=== PATIENT | female | born 1935 | race Caucasian/White ===

== ENCOUNTER 2020-05-29 09:42 | Day surgery (SDC) | payer MEDICARE, MEDICAID ==
[~2020-05-29 09:42] MED LIST: Sodium Chloride 0.9% 10 ML Syringe FLUSH PRN
[2020-05-29] MEDS ORDERED: Midazolam 1 MG/ML 2 ML SDV IV ONE (09:43)
[2020-05-29] MEDS ORDERED: Dexamethasone 4 MG/ML SDV IV ONE (09:43)
[2020-05-29] MEDS ORDERED: Sodium Chloride 0.9% 10 ML Syringe IV ONE (09:43)
[2020-05-29] MEDS ORDERED: Timolol Maleate 0.5% Ophth Soln 5 ML Bottle EYERT ONE (10:15)
[2020-05-29] MEDS ORDERED: Cataract Ophth Solution EYERT ONE (10:15)
[2020-05-29] MEDS ORDERED: Povidone-Iodine 5% Sterile Ophth Soln 30 ML Bottle EYERT ONE ×2 (10:15→11:35)
[2020-05-29] MEDS ORDERED: Tropicamide 1% Ophth Soln 15 ML Bottle EYERT ONE (10:15)
[2020-05-29] MEDS ORDERED: Moxifloxacin 0.5% Ophth Soln 3 ML Bottle EYERT ONE (10:15)
[2020-05-29] MEDS ORDERED: Acetaminophen 325 MG Tab PO PRN (10:15)
[2020-05-29] MEDS ORDERED: Ondansetron 4 MG/2 ML SDV IVPUSH PRN (10:15)
[2020-05-29] MEDS ORDERED: Proparacaine 0.5% Ophth Soln 15 ML Bottle EYERT ONE (10:15)
[2020-05-29] MEDS: Phenylephrine 10% Ophth Soln 5 ML Bot EYERT PRN ×2 (10:44→11:15)
[2020-05-29] MEDS ORDERED: Lidocaine 1% 30 ML SDV ONE (11:35)
[2020-05-29] MEDS ORDERED: Apraclonidine 0.5% Ophth Soln 5 ML Bot EYERT ONE (11:35)
[2020-05-29] MEDS ORDERED: Tetracaine HCl/PF 0.5% 4 ML Bottle EYERT ONE (11:35)
[2020-05-29] MEDS ORDERED: Vancomycin 500 MG SDV EYERT ONE (11:36)
[2020-05-29] MEDS ORDERED: Balanced Salt Solution Ophth Irrig 500 ML Bottle IOCULAR ONE (11:36)
[2020-05-29] MEDS ORDERED: Dexamethasone/Neomycin/Polymyxin B Ophth Oint 3.5 GM Tube EYERT ONE (11:36)
[2020-05-29] MEDS ORDERED: Chondroitin Sulfate/Hyaluronate Sodium Ophth Inj 0.75 ML Syringe EYERT ONE ×3 (11:36→11:58)
[2020-05-29] MEDS ORDERED: Diclofenac Sodium 0.1% Ophth Soln 5 ML Bottle EYERT ONE (11:36)
[2020-05-29] MEDS ORDERED: Dexamethasone 4 MG/ML SDV ONE (11:57)
[2020-05-29] MEDS ORDERED: Dexamethasone 4 MG/ML SDV IOCULAR ONE (11:58)
[2020-05-29] MEDS ORDERED: Carbachol 0.01% Intraocular 1.5 ML Vial EYERT ONE (11:59)
--- NOTE | 2020-05-30 09:30 | OR ---
DATE: 05/29/2020 PREOPERATIVE DIAGNOSIS: Complex cataract, right eye, with small pupil/Malyugin ring. POSTOPERATIVE DIAGNOSIS: Complex cataract, right eye, with small pupil/Malyugin ring. INDICATION: Ms. Stringer was seen in the clinic. Examination revealed visually significant mixed cataract. 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 I explained options, offered cataract surgery, and I explained risks, including but not limited to, infection, retinal detachment, loss of vision, need for additional surgery, risks associated with anesthesia. I also explained risks associated with pseudoexfoliation including lens or implant dislocation. We discussed implant options. We recommended a monofocal implant. She is symptomatic and unhappy with her vision, difficulty reading, difficulty with small print, difficulty threading needles. She voiced understanding and requested surgery. OPERATIVE DESCRIPTION: After informed consent was obtained and the risks, benefits, and alternatives were explained, Ms. Stringer was brought to the OR and topical anesthesia was administered. She was prepped and draped in sterile fashion. Attention was placed on the right eye. A sterile lid speculum was placed into the right eye to allow operative exposure. A full-thickness paracentesis was then made temporally. Preservative-free lidocaine followed by viscoelastic was injected into the anterior chamber. 2.75 mm corneal incision was then made temporally. A bent needle cystotome was then used to create a small tai in the anterior capsule. A 360 degree curvilinear capsulorrhexis was created. Nucleus was then hydrodissected, hydrodelineated, decompressed centrally and rotated. The pupil began to constrict. Malyugin ring was inserted. The entire lens zonular complex showed significant phacodonesis. I inserted the phacoemulsification handpiece, began to sculpt and divide the nucleus. The nucleus was initially divided in 4 quadrants. The entire lens capsular complex began to dislocate into the posterior segment. I injected additional viscoelastic. I expanded the incision to approximately 6 mm. I used a peg to support the lens capsular complex and used a lens loop to deliver the entire lens nucleus capsular complex into the anterior chamber. With prolapse of the corneal incision and manipulation of the lens loop, the remaining lens nucleus complex was delivered from the eye. I injected Miostat to constrict the pupil. I made a peripheral iridotomy at approximately 9 o'clock. I inserted an anterior chamber IOL. Partially sutured the corneal incision. Then used bimanual irrigation and aspiration to aspirate any residual viscoelastic from the anterior chamber. I injected 0.1 mL of preservative-free vancomycin. Wound and paracentesis sites were hydrated, noted to be Tiff negative. Intra-ocular pressure was found to be in the high normal range. Intra-ocular lens was clear and well centered. Good red reflex was noted. Subconjunctival dexamethasone was then administered. Following postoperative medications, sterile patch and shield were placed over the eye. The patient was awakened from light sedation and transported to the postoperative recovery area having tolerated the procedure well. [facility] /[id number]
== END 2020-05-29 13:50 | disposition home or self-care (01) ==
LOC: DL.SDS 09:42
PROVIDERS: ATTEND Ophthalmology
DX: H25.813 Combined forms of age-related cataract, bilateral (principal); H35.30 Unspecified macular degeneration; E66.9 Obesity, unspecified; E78.5 Hyperlipidemia, unspecified; Z68.24 Body mass index [BMI] 24.0-24.9, adult; Z79.899 Other long term (current) drug therapy
CPT/HCPCS: 00142; 66982; A9270; J1100; J2001; J2250; J3370; V2630; V2632